=== PATIENT | female | born 1950 | race Caucasian/White ===

== ENCOUNTER 2018-10-10 13:50 | Emergency (ER) | payer MEDICAID ==
[~2018-10-10] VITALS: Ht 162.6 cm; Wt 82.0 kg
[2018-10-10 14:05] VITALS: Ht 162.6 cm; Wt 82.0 kg
[2018-10-10] MEDS ORDERED: KETOROLAC 30 MG INJ IV STA (17:56)
[2018-10-10] MEDS ORDERED: PROCHLORPERAZINE 10 MG INJ IV STA (17:56)
[2018-10-10] MEDS ORDERED: SOD CHLORIDE 0.9% 500 ML IV STA ×2 (17:56→19:07)
[2018-10-10] MEDS ORDERED: CEFTRIAXONE 1 GM/50 ML (PMX) 50 ML IVPB ONE (20:00)
[2018-10-10] MEDS ORDERED: ACETAMINOPHEN 500 MG TAB PO STA (20:38)
[2018-10-10] MEDS ORDERED: NITR-58 PO (20:46)
[2018-10-10] MEDS ORDERED: MECL12.574 PO (20:46)
[2018-10-10 20:47] VITALS: BP 157/68; PULSE 77; RESP 17
--- NOTE | 2018-10-11 02:14 | ERD ---
ER Documentation Chief Complaint Chief Complaint high blood pressure; headache; dizziness; bilateral ear pain;right leg pain HPI 68-year-old female brought in by her daughter for hypertension with associated headache, dizziness, ear pressure, right lower extremity pain and left shoulder pain. Her right lower extremity pain and left shoulder pain has been chronic but acutely worse today. The patient woke up this morning, she was feeling this pain that was worse than usual. At that time she started having a mild frontal headache and some room spinning dizziness. Family noted that her blood pressure was high. Patient states that her dizziness is intermittent. By the time I saw her, her blood pressure had improved and her dizziness had significantly improved. She complains of aching pain in the right lower extremity that is constant, nonradiating, worse with walking. No associated weakness or numbness in the leg. No alleviating factors. Her left shoulder pain is only with movement, chronic, aching, nonradiating, 7 out of 10. No associated numbness or tingling in the arm. She denies any chest pain, shortness of breath, fever, chills, cough, recent illnesses. No abdominal pain, dysuria, or hematuria. Currently she is denying a headache. She feels some pressure in her ears and some lightheadedness ROS All systems reviewed and are negative except as per history of present illness. Medications Home Meds Active Scripts Meclizine Hcl* (Antivert*) 12.5 Mg Tab, 25 MG PO Q6H PRN for DIZZINESS, #20 TAB Prov:EPIFANIO SOLORIO MD 10/10/18 Nitrofurantoin Monohyd Macrocr* (Macrobid*) 100 Mg Capsr, 100 MG PO BID for 5 Days, CAP Prov:EPIFANIO SOLORIO MD 10/10/18 Allergies Allergies: Uncoded Allergies: PENICILLIN (Allergy, Unknown, 10/10/18) PMhx/Soc History of Surgery: Yes (VERICOSE VEIN REMOVAL) Hx Cardiac Disorders: Yes (HTN) Hx Alcohol Use: No Hx Substance Use: No Hx Tobacco Use: No Smoking Status: Never smoker FmHx Family History: No diabetes Physical Exam Vitals Vital Signs Date Temp Pulse Resp B/P (MAP) Pulse Ox O2 O2 Flow FiO2 Time Delivery Rate 10/10/18 98.1 77 17 157/68 95 Room Air 20:47 (97) 4/10/19 97.7 72 17 161/72 95 Room Air 18:57 (101) 10/10/18 68 15 145/72 100 Room Air 18:31 (96) 10/10/18 143/75 15:55 (97) 10/10/18 98.8 80 18 177/83 94 14:05 (114) Physical Exam Const: No acute distress, well-appearing, nontoxic Head: Atraumatic Eyes: Normal Conjunctiva, PERRLA, EOMI, no nystagmus ENT: Normal External Ears, Nose and Mouth. Neck: Full range of motion. No meningismus. Resp: Clear to auscultation bilaterally Cardio: Regular rate and rhythm, no murmurs. 2+ distal pulses in all 4 extremities Abd: Soft, non tender, non distended. Normal bowel sounds Skin: No petechiae or rashes Back: No midline or flank tenderness Ext: No cyanosis, or edema. Right lower extremity appears larger in girth compared to the left lower extremity. No cords palpated. No discoloration of the skin. Neur: Awake and alert, oriented x3, cranial nerves intact, strength and sensations intact in all 4 extremities. Normal balance with steady gait Psych: Normal Mood and Affect Result Diagram: 10/10/18180210/10/181802 Results 24 hrs Laboratory Tests Test 10/10/18 18:03 10/10/18 19:17 White Blood Count 5.9 10^3/ul Red Blood Count 4.55 10^6/ul Hemoglobin 11.8 g/dl Hematocrit 37.0 % Mean Corpuscular Volume 81.3 fl Mean Corpuscular Hemoglobin 25.9 pg Mean Corpuscular Hemoglobin Concent 31.9 g/dl Red Cell Distribution Width 14.8 % Platelet Count 412 10^3/UL Mean Platelet Volume 9.2 fl Immature Granulocytes % 0.300 % Neutrophils % 61.3 % Lymphocytes % 30.5 % Monocytes % 7.0 % Eosinophils % 0.0 % Basophils % 0.9 % Nucleated Red Blood Cells % 0.0 /100WBC Immature Granulocytes # 0.020 10^3/ul Neutrophils # 3.6 10^3/ul Lymphocytes # 1.8 10^3/ul Monocytes # 0.4 10^3/ul Eosinophils # 0.0 10^3/ul Basophils # 0.1 10^3/ul Nucleated Red Blood Cells # 0.0 10^3/ul Sodium Level 140 mmol/L Potassium Level 3.9 mmol/L Chloride Level 100 mmol/L Carbon Dioxide Level 30 mmol/L Anion Gap 10 Blood Urea Nitrogen 15 mg/dl Creatinine 0.66 mg/dl Est Glomerular Filtrat Rate mL/min > 60 mL/min Glucose Level 114 mg/dl Calcium Level 9.9 mg/dl Urine Color STRAW Urine Clarity CLEAR Urine pH 7.0 Urine Specific [place] 1.006 Urine Ketones NEGATIVE mg/dL Urine Nitrite NEGATIVE mg/dL Urine Bilirubin NEGATIVE mg/dL Urine Urobilinogen NEGATIVE mg/dL Urine Leukocyte Esterase 2+ Anh/ul Urine Microscopic RBC 1 /HPF Urine Microscopic WBC 17 /HPF Urine Squamous Epithelial Cells FEW /HPF Urine Bacteria FEW /HPF Urine Mucus FEW /HPF Urine Hemoglobin 1+ mg/dL Urine Glucose NEGATIVE mg/dL Urine Total Protein NEGATIVE mg/dl Current Medications Medications Dose Sig/Santino Start Time Status Last (Trade) Ordered Route PRN Stop Time Admin Dose Reason Admin Sodium 500 ml @ Q1H STAT 10/10/18 DC 10/10/18 Chloride 500 mls/hr IV 17:56 18:04 10/10/18 18:55 10 mg ONCE STAT 10/10/18 DC 10/10/18 Prochlorperaz IV 17:56 18:04 ine 10/10/18 17:58 (Compazine Inj) Ketorolac 30 mg ONCE STAT 10/10/18 DC 10/10/18 Tromethamine IV 17:56 18:04 (Toradol) 10/10/18 17:58 Sodium 500 ml @ Q1H STAT 10/10/18 DC 10/10/18 Chloride 500 mls/hr IV 19:07 19:17 10/10/18 20:06 Ceftriaxone 50 ml @ ONCE ONCE 10/10/18 DC 10/10/18 Sodium 100 mls/hr IVPB 20:00 20:13 10/10/18 20:29 1,000 mg ONCE STAT 10/10/18 DC 10/10/18 Acetaminophen PO 20:38 20:45 (Tylenol 10/10/18 20:39 Tab) Procedures/MDM EMERGENT LABS AND DIAGNOSTIC STUDIES: Lab Results above were reviewed and interpreted by me. CBC: no anemia or evidence of infection CMP: No evidence of clinically significant electrolyte abnormality, acidosis, renal failure, hypoglycemia UA: Signs of possible infection. Urine culture pending 12-lead EKG was interpreted by Bridget Solorio MD: Normal Sinus Rhythm Normal axis Normal intervals No acute ST or T wave changes suggestive of acute ischemia or STEMI. Radiology Results as interpreted by Radiology below were reviewed by Chely Solorio MD: Venous ultrasound right lower extremity shows no evidence of DVT Initial Nursing notes reviewed. Previous Medical Records requested via the Electronic Health Record. EMERGENCY DEPARTMENT COURSE / MEDICAL DECISION MAKING: Patient initially presented with high blood pressure which improved without any intervention prior to me seeing her. Other than her hypertension, her vitals were unremarkable. Neurologic exam was normal without evidence of stroke. Her workup was notable for evidence of possible UTI. She was treated with Compazine for her dizziness with improvement. Right lower extremity ultrasound was done to evaluate for possible DVT and was negative. I have a low suspicion for ischemic limb. Upon reevaluation, the patient is feeling much better. I recommended treatment with antibiotics for her UTI and return precautions given. Follow-up with PCP recommended in the next 2-3 days. Patient's blood pressure was elevated (>120/80) but appears stable without evidence of hypertensive emergency or urgency. The patient was counseled about the risks of hypertension and urged to pursue outpatient monitoring and therapy within a week with their primary care physician. Departure Diagnosis: Primary Impression: Chronic pain of right lower extremity Additional Impressions: Dizziness Chronic left shoulder pain UTI (urinary tract infection) Urinary tract infection type: site unspecified Hematuria presence: without hematuria Qualified Codes: N39.0 - Urinary tract infection, site not specified Condition: Stable Patient Instructions: Understanding Urinary Tract Infections (UTIs), Inner Ear Problems: Causes of Dizziness (Vertigo), Shoulder Pain (Uncertain Cause) Additional Instructions: Return to the ER if you are having any worsening symptoms. Follow-up with your primary care doctor within the next 2 days. EPIFANIO SOLORIO MD Oct 11, 2018 02:14
== END 2018-10-10 21:19 | disposition home or self-care (01) ==
LOC: E/R 13:50
DX: M79.661 Pain in right lower leg (principal); R42 Dizziness and giddiness; M25.512 Pain in left shoulder; N39.0 Urinary tract infection, site not specified; I10 Essential (primary) hypertension
CPT/HCPCS: 36415; 80048; 81001; 85025; 93005; 93971; 96361; 96365; 96375; J0696; J0780; J1885; J7040; Z7502; Z7610